=== PATIENT | male | born 1975 ===

== ENCOUNTER 2017-07-09 16:05 | Inpatient (IN) | payer OTHER ==
--- NOTE | 2017-07-09 17:18 | C.PDOC ---
History Of Present Illness 42 yr old male with PMHx of psoriasis, presents to the ER with complaints of palpitations and SOB intermittent for the past 3 days. Patient states the palpitations last about 1 minute and than resolves. Patient denies caffeine or drug use, no risk factors for DVT, fever, chest pain, nausea, vomiting, weakness or numbness. Time Seen by Provider: 07/09/17 16:51 Chief Complaint (Nursing): Palpitations History Per: Patient History/Exam Limitations: no limitations Onset/Duration Of Symptoms: Days (3), Intermittent Episodes Past Medical History Reviewed: Historical Data, Nursing Documentation, Vital Signs Vital Signs: Last Vital Signs Temp 98.1 F 07/10/17 15:15 Pulse 79 07/10/17 15:15 Resp 20 07/10/17 15:15 BP 102/66 07/10/17 15:15 Pulse Ox 100 07/10/17 15:15 Family History: States: No Known Family Hx - Social History Hx Alcohol Use: Yes Hx Substance Use: No - Immunization History Hx Tetanus Toxoid Vaccination: No Hx Influenza Vaccination: No Hx Pneumococcal Vaccination: No Review Of Systems Except As Marked, All Systems Reviewed And Found Negative. Constitutional: Negative for: Fever Cardiovascular: Positive for: Palpitations. Negative for: Chest Pain Respiratory: Positive for: Shortness of Breath Gastrointestinal: Negative for: Nausea, Vomiting Neurological: Negative for: Weakness, Numbness Physical Exam - Physical Exam Appears: Non-toxic, No Acute Distress Skin: Warm, Dry, Rash (rash preent to the arms and chest consistent with psoriasis) Eye(s): bilateral: Conjunctiva Pale Oral Mucosa: Moist Neck: Normal, Normal ROM, Supple Cardiovascular: Rhythm Regular, No Murmur Respiratory: Normal Breath Sounds, No Rales, No Rhonchi, No Stridor, No Wheezing Gastrointestinal/Abdominal: Normal Exam, Soft, No Tenderness, No Guarding, No Rebound Rectal: Rectal Tone (normal), Other (No stool in vault. Stool secretions area hemoccult positive.) Extremity: Normal ROM, No Swelling Neurological/Psych: Oriented x3, Normal Speech ED Course And Treatment - Laboratory Results Result Diagrams: 07/10/17 13:41 07/09/17 17:26 ECG: Interpreted By Me, Viewed By Me ECG Rhythm: Sinus Rhythm Interpretation Of ECG: Normal intervals. Normal axis. No ST/T wave changes. Rate From EC (BPM) O2 Sat by Pulse Oximetry: 100 (RA) Pulse Ox Interpretation: Normal Progress Note: Spoke to Dr. Urbina regarding patient. Patient to be admitted under telemetry for GI bleed and symptomatic anema. Dr. Feliciano for GI consult. Critical Care Time - Critical Care Note Total Time (in mins): 45 Documented critical care: time excludes all time spent performing seperately billable procedures. Medical Decision Making Medical Decision Making: PLAN: * CXR * EKG * Labs Disposition Discussed With Dr.: Thania London Counseled Patient/Family Regarding: Studies Performed, Diagnosis - Disposition Disposition: HOSPITALIZED Disposition Time: 18:16 Condition: FAIR - Clinical Impression Clinical Impression: GI bleed - Scribe Statement The provider has reviewed the documentation as recorded by the Jeffibe Susanna Villeda Provider Attestation: All medical record entries made by the Jeffibadela were at my direction and personally dictated by me. I have reviewed the chart and agree that the record accurately reflects my personal performance of the history, physical exam, medical decision making, and the department course for this patient. I have also personally directed, reviewed, and agree with the discharge instructions and disposition.
[2017-07-09 17:29] LABS: BASO # 0.1 K/uL (0.0-0.2); EOS # 0.2 K/uL (0.0-0.7); LYMPH # 1.5 K/uL (1.0-4.3); MEAN CORPUSCULAR HGB CONC 30.4 g/dL (33.0-37.0); NEUT # 3.6 K/uL (1.8-7.0)
[2017-07-09 17:32] LABS: BASO % 1.8 % (0.0-2.0); EOS % 3.3 % (0.0-4.0); LYMPH % 25.5 % (20.0-40.0); MEAN CELL VOLUME 65.7 fL (80.0-94.0); MEAN PLATELET VOLUME 6.6 fL (7.2-11.7); MONO # 0.4 K/uL (0.0-0.8); MONO % 7.2 % (0.0-10.0); NEUT % 62.2 % (50.0-75.0); NRBC % 0.8 % (0.0-2.0); RBC 1.96 Mil/uL (4.40-5.90); RED CELL DISTRIBUTION WIDTH 19.6 % (11.5-14.5); WHITE BLOOD COUNT 5.7 K/uL (4.8-10.8)
[2017-07-09 17:34] LABS: HEMOGLOBIN 3.9 g/dL (12.0-18.0)
[2017-07-09 17:41] LABS: ALB/GLOB RATIO 0.9 (1.0-2.1); ALBUMIN 3.3 g/dL (3.5-5.0); ALT/SGPT 23 U/L (21-72); AST/SGOT 22 U/L (17-59); BLOOD UREA NITROGEN 17 mg/dL (9-20); CALCIUM 8.3 mg/dl (8.6-10.4); GFR AFRICAN-AMERICAN > 60; GFR NON-AFRICAN AMERICAN > 60; MAGNESIUM 2.1 mg/dL (1.6-2.3)
[2017-07-09 17:53] LABS: B-TYPE NATRIURETIC PEPTIDE 311 pg/mL (0-450)
--- NOTE | 2017-07-09 18:12 | RAD ---
HISTORY: chest pain COMPARISON: None available. TECHNIQUE: Chest PA and lateral FINDINGS: LUNGS: Mild biapical pleural thickening. No focal consolidation. Scattered probable calcified granulomas. Please note that chest x-ray has limited sensitivity for the detection of pulmonary masses. PLEURA: No significant pleural effusion identified. No definite pneumothorax . CARDIOVASCULAR: Heart size appears within normal limits. OSSEOUS STRUCTURES: No acute osseous abnormality identified. VISUALIZED UPPER ABDOMEN: Unremarkable. OTHER FINDINGS: None. IMPRESSION: No focal consolidation identified.
[2017-07-09] MEDS ORDERED: Lactated Ringer's 1,000 ML IV SCH (19:30)
[2017-07-09 19:31] LABS: PROTHROMBIN TIME 12.3 SECONDS (9.7-12.2)
[2017-07-09 19:32] LABS: INR 1.1
[2017-07-09 19:39] LABS: IRON 21 ug/dL (49-181)
[2017-07-09 19:48] LABS: % IRON SATURATION 6 (20-55); TOTAL IRON BINDING CAPACITY 378 ug/dL (250-450)
[2017-07-09] MEDS: Pantoprazole 80 MG in Sodium Chloride 0.9% 100 ML IVP SCH (19:55)
[2017-07-09 19:59] LABS: HEPATITIS B SURFACE AG Negative (NEGATIVE)
[2017-07-09 20:05] LABS: HEPATITIS A IGM NEGATIVE (NEGATIVE); HEPATITIS B CORE AB NEGATIVE (NEGATIVE)
[2017-07-09 20:16] LABS: HEPATITIS C ANTIBODY NEGATIVE (NEGATIVE)
--- NOTE | 2017-07-09 20:29 | CP.PCM.HP ---
<Winston Marie E - Last Filed: 07/09/17 20:47> History of Present Illness - History of Present Illness History of Present Illness: CC: Shortness of breath and Dizziness HPI: Patient is a 42 year old with past medical history of psoriasis who presents to the ed with complaints of dizziness, shortness of breath, palpitation that has been worsening for the past three weeks. Patient reports that he has noted intermittent dark stool for the past two weeks but denies bright red blood in his bowel movement. Patient admits to 6-7lbs weight lose within 5-6 monthsm shortness of breath, palpitations, dizziness, lightheadedness. 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 Admits to 1 cigarettes every night for the past 8 years, social ETOH and denies illicit drug use Present on Admission - Present on Admission Any Indicators Present on Admission: No Review of Systems - Constitutional Constitutional: Fatigue, Weakness. absent: Chills, Fever - EENT Eyes: absent: Blurred Vision, Change in Vision Ears: Dizziness Nose/Mouth/Throat: absent: Epistaxis - Cardiovascular Cardiovascular: Dyspnea, Lightheadedness, Palpitations. absent: Chest Pain, Edema, Leg Edema, Rapid Heart Rate, Syncope - Respiratory Respiratory: Dyspnea, Dyspnea on Exertion. absent: Cough, Hemoptysis, Wheezing , Snoring, Pain on Inspiration, Chest Congestion, Pain with Coughing - Gastrointestinal Gastrointestinal: absent: Abdominal Pain, Diarrhea, Hematemesis, Hematochezia, Nausea, Vomiting - Psychiatric Psychiatric: absent: Anxiety, Change in Appetite - Endocrine Endocrine: Fatigue, Palpitations - Hematologic/Lymphatic Hematologic: absent: Easy Bleeding, Easy Bruising Past Patient History - Infectious Disease Hx of Infectious Diseases: None - Past Social History Smoking Status: Current Some Days Smoker - INTEGUMENTARY Hx Psoriasis: Yes - PSYCHIATRIC Hx Substance Use: No - SURGICAL HISTORY Hx Surgeries: No - ANESTHESIA Hx Anesthesia: No Meds Allergies/Adverse Reactions: Allergies Allergy/AdvReac Type Severity Reaction Status Date / Time No Known Allergies Allergy Verified 07/09/17 16:30 Physical Exam - Constitutional Appears: No Acute Distress - Head Exam Head Exam: ATRAUMATIC, NORMAL INSPECTION - Eye Exam Eye Exam: EOMI, Normal appearance - ENT Exam ENT Exam: Mucous Membranes Moist - Respiratory Exam Respiratory Exam: Clear to Auscultation Bilateral, NORMAL BREATHING PATTERN. absent: Rhonchi, Wheezes, Respiratory Distress - Cardiovascular Exam Cardiovascular Exam: REGULAR RHYTHM, +S1, +S2. absent: Tachycardia - GI/Abdominal Exam GI & Abdominal Exam: Normal Bowel Sounds, Soft. absent: Distended, Firm, Guarding, Tenderness - Rectal Exam Additional comments: As per ER documentation: Rectal Tone (normal), Other (No stool in vault. Stool secretions area hemoccult positive.) - Extremities Exam Extremities exam: Positive for: normal inspection. Negative for: calf tenderness, pedal edema - Neurological Exam Neurological exam: Alert, CN II-XII Intact, Oriented x3 - Psychiatric Exam Psychiatric exam: Normal Affect - Skin Skin Exam: Pallor Additional comments: Dry healed rashes or scabies noted on bilateral arms possibly due to psoriasis Results - Vital Signs Recent Vital Signs: Last Vital Signs Temp 98.7 F 07/09/17 20:08 Pulse 88 07/09/17 20:08 Resp 14 07/09/17 20:08 BP 113/65 07/09/17 20:08 Pulse Ox 100 07/09/17 20:08 - Labs Result Diagrams: 07/09/17 17:26 07/09/17 17:26 Labs: Laboratory Results - last 24 hr 07/09/17 07/09/17 07/09/17 17:26 17:26 17:26 WBC 5.7 RBC 1.96 L Hgb 3.9 L* Hct 12.9 L MCV 65.7 L MCH 20.0 L MCHC 30.4 L RDW 19.6 H Plt Count 473 H MPV 6.6 L Neut % (Auto) 62.2 Lymph % (Auto) 25.5 Barren % (Auto) 7.2 Eos % (Auto) 3.3 Baso % (Auto) 1.8 Neut # (Auto) 3.6 Lymph # (Auto) 1.5 Barren # (Auto) 0.4 Eos # (Auto) 0.2 Baso # (Auto) 0.1 Retic Count PT INR D-Dimer, Quantitative 219 Sodium 135 Potassium 4.4 Chloride 99 Carbon Dioxide 28 Anion Gap 12 BUN 17 Creatinine 0.9 Est GFR ( Amer) > 60 Est GFR (Non-Af Amer) > 60 Random Glucose 99 Calcium 8.3 L Magnesium 2.1 Iron TIBC % Saturation Total Bilirubin 0.3 AST 22 ALT 23 Alkaline Phosphatase 68 Troponin I < 0.0120 C-React Prot High Sens NT-Pro-B Natriuret Pep 311 Total Protein 6.9 Albumin 3.3 L Globulin 3.5 Albumin/Globulin Ratio 0.9 L Hepatitis A IgM Ab Hep Bs Antigen Hep B Core IgM Ab Hepatitis C Antibody HIV 1&2 Antibody Screen Anti-Staphylolysin O Blood Type Antibody Screen 07/09/17 07/09/17 07/09/17 19:05 19:05 19:05 WBC RBC Hgb Hct MCV MCH MCHC RDW Plt Count MPV Neut % (Auto) Lymph % (Auto) Barren % (Auto) Eos % (Auto) Baso % (Auto) Neut # (Auto) Lymph # (Auto) Barren # (Auto) Eos # (Auto) Baso # (Auto) Retic Count PT INR D-Dimer, Quantitative Sodium Potassium Chloride Carbon Dioxide Anion Gap BUN Creatinine Est GFR ( Amer) Est GFR (Non-Af Amer) Random Glucose Calcium Magnesium Iron TIBC % Saturation Total Bilirubin AST ALT Alkaline Phosphatase Troponin I C-React Prot High Sens 10.01 H NT-Pro-B Natriuret Pep Total Protein Albumin Globulin Albumin/Globulin Ratio Hepatitis A IgM Ab Negative Hep Bs Antigen Negative Hep B Core IgM Ab Negative Hepatitis C Antibody Negative HIV 1&2 Antibody Screen Anti-Staphylolysin O Negative Blood Type Antibody Screen 07/09/17 07/09/17 07/09/17 19:05 19:06 19:06 WBC RBC Hgb Hct MCV MCH MCHC RDW Plt Count MPV Neut % (Auto) Lymph % (Auto) Barren % (Auto) Eos % (Auto) Baso % (Auto) Neut # (Auto) Lymph # (Auto) Barren # (Auto) Eos # (Auto) Baso # (Auto) Retic Count PT INR D-Dimer, Quantitative Sodium Potassium Chloride Carbon Dioxide Anion Gap BUN Creatinine Est GFR ( Amer) Est GFR (Non-Af Amer) Random Glucose Calcium Magnesium Iron 21 L TIBC 378 % Saturation 6 L Total Bilirubin AST ALT Alkaline Phosphatase Troponin I C-React Prot High Sens NT-Pro-B Natriuret Pep Total Protein Albumin Globulin Albumin/Globulin Ratio Hepatitis A IgM Ab Hep Bs Antigen Hep B Core IgM Ab Hepatitis C Antibody HIV 1&2 Antibody Screen Negative Anti-Staphylolysin O Blood Type O POSITIVE Antibody Screen Negative 07/09/17 07/09/17 19:27 19:31 WBC RBC Hgb Hct MCV MCH MCHC RDW Plt Count MPV Neut % (Auto) Lymph % (Auto) Barren % (Auto) Eos % (Auto) Baso % (Auto) Neut # (Auto) Lymph # (Auto) Barren # (Auto) Eos # (Auto) Baso # (Auto) Retic Count 4.1 H PT 12.3 H INR 1.1 D-Dimer, Quantitative Sodium Potassium Chloride Carbon Dioxide Anion Gap BUN Creatinine Est GFR ( Amer) Est GFR (Non-Af Amer) Random Glucose Calcium Magnesium Iron TIBC % Saturation Total Bilirubin AST ALT Alkaline Phosphatase Troponin I C-React Prot High Sens NT-Pro-B Natriuret Pep Total Protein Albumin Globulin Albumin/Globulin Ratio Hepatitis A IgM Ab Hep Bs Antigen Hep B Core IgM Ab Hepatitis C Antibody HIV 1&2 Antibody Screen Anti-Staphylolysin O Blood Type Antibody Screen Assessment & Plan (1) Anemia Assessment and Plan: On admission: H/H: 3.9/12.9 GI consults, Dr. Feliciano---> Help appreciated Hematology/Oncology, Dr. Cardozo----> Help appreciated Transfuse 3 units PRBC Recheck CBC Labs/imaging: Iron: 21, TIBC: 378, % Saturation:6, F/u ferritin, reticulocyte, haptoglobin F/u gastric and occult stool F/u abdomen complete (US) HIV, hepatitis panel and ASO: Negative Status: Acute (2) History of psoriasis Status: Acute (3) Prophylactic measure Assessment and Plan: GI: Protonix drip DVT: SCDs. no anticoagualtion due to unstable H/H NPO Fall protocol All plans and management discussed with Dr. Serrano Status: Acute <Daniel Serrano - Last Filed: 07/10/17 17:41> Results - Vital Signs Recent Vital Signs: Last Vital Signs Temp 98.1 F 07/10/17 15:15 Pulse 79 07/10/17 15:15 Resp 20 07/10/17 15:15 BP 102/66 07/10/17 15:15 Pulse Ox 100 07/10/17 15:15 - Labs Result Diagrams: 07/10/17 13:41 07/09/17 17:26 Labs: Laboratory Results - last 24 hr 07/09/17 07/09/17 07/09/17 17:26 17:26 17:26 WBC RBC Hgb Hct MCV MCH MCHC RDW Plt Count MPV Neut % (Auto) Lymph % (Auto) Barren % (Auto) Eos % (Auto) Baso % (Auto) Neut # (Auto) Lymph # (Auto) Barren # (Auto) Eos # (Auto) Baso # (Auto) Smear Path Review ESR Retic Count PT INR D-Dimer, Quantitative 219 Sodium 135 Potassium 4.4 Chloride 99 Carbon Dioxide 28 Anion Gap 12 BUN 17 Creatinine 0.9 Est GFR ( Amer) > 60 Est GFR (Non-Af Amer) > 60 Random Glucose 99 Calcium 8.3 L Magnesium 2.1 Iron TIBC % Saturation Total Bilirubin 0.3 AST 22 ALT 23 Alkaline Phosphatase 68 Troponin I < 0.0120 C-React Prot High Sens NT-Pro-B Natriuret Pep 311 Total Protein 6.9 Albumin 3.3 L Globulin 3.5 Albumin/Globulin Ratio 0.9 L Vitamin B12 Folate Hepatitis A IgM Ab Hep Bs Antigen Hep B Core IgM Ab Hepatitis C Antibody HIV 1&2 Antibody Screen Anti-Staphylolysin O Blood Type Antibody Screen 07/09/17 07/09/17 07/09/17 19:05 19:05 19:05 WBC RBC Hgb Hct MCV MCH MCHC RDW Plt Count MPV Neut % (Auto) Lymph % (Auto) Barren % (Auto) Eos % (Auto) Baso % (Auto) Neut # (Auto) Lymph # (Auto) Barren # (Auto) Eos # (Auto) Baso # (Auto) Smear Path Review ESR 60 H Retic Count PT INR D-Dimer, Quantitative Sodium Potassium Chloride Carbon Dioxide Anion Gap BUN Creatinine Est GFR ( Amer) Est GFR (Non-Af Amer) Random Glucose Calcium Magnesium Iron TIBC % Saturation Total Bilirubin AST ALT Alkaline Phosphatase Troponin I C-React Prot High Sens 10.01 H NT-Pro-B Natriuret Pep Total Protein Albumin Globulin Albumin/Globulin Ratio Vitamin B12 Folate Hepatitis A IgM Ab Hep Bs Antigen Hep B Core IgM Ab Hepatitis C Antibody HIV 1&2 Antibody Screen Anti-Staphylolysin O Negative Blood Type Antibody Screen 07/09/17 07/09/17 07/09/17 19:05 19:05 19:06 WBC RBC Hgb Hct MCV MCH MCHC RDW Plt Count MPV Neut % (Auto) Lymph % (Auto) Barren % (Auto) Eos % (Auto) Baso % (Auto) Neut # (Auto) Lymph # (Auto) Barren # (Auto) Eos # (Auto) Baso # (Auto) Smear Path Review ESR Retic Count PT INR D-Dimer, Quantitative Sodium Potassium Chloride Carbon Dioxide Anion Gap BUN Creatinine Est GFR ( Amer) Est GFR (Non-Af Amer) Random Glucose Calcium Magnesium Iron TIBC % Saturation Total Bilirubin AST ALT Alkaline Phosphatase Troponin I C-React Prot High Sens NT-Pro-B Natriuret Pep Total Protein Albumin Globulin Albumin/Globulin Ratio Vitamin B12 Folate Hepatitis A IgM Ab Negative Hep Bs Antigen Negative Hep B Core IgM Ab Negative Hepatitis C Antibody Negative HIV 1&2 Antibody Screen Negative Anti-Staphylolysin O Blood Type O POSITIVE Antibody Screen Negative 07/09/17 07/09/17 07/09/17 19:06 19:06 19:27 WBC RBC Hgb Hct MCV MCH MCHC RDW Plt Count MPV Neut % (Auto) Lymph % (Auto) Barren % (Auto) Eos % (Auto) Baso % (Auto) Neut # (Auto) Lymph # (Auto) Barren # (Auto) Eos # (Auto) Baso # (Auto) Smear Path Review ESR Retic Count 4.1 H PT INR D-Dimer, Quantitative Sodium Potassium Chloride Carbon Dioxide Anion Gap BUN Creatinine Est GFR ( Amer) Est GFR (Non-Af Amer) Random Glucose Calcium Magnesium Iron 21 L TIBC 378 % Saturation 6 L Total Bilirubin AST ALT Alkaline Phosphatase Troponin I C-React Prot High Sens NT-Pro-B Natriuret Pep Total Protein Albumin Globulin Albumin/Globulin Ratio Vitamin B12 534 Folate 16.3 Hepatitis A IgM Ab Hep Bs Antigen Hep B Core IgM Ab Hepatitis C Antibody HIV 1&2 Antibody Screen Anti-Staphylolysin O Blood Type Antibody Screen 07/09/17 07/10/17 19:31 13:41 WBC 6.5 RBC 3.38 L Hgb 8.3 L D Hct 25.8 L MCV 76.2 L D MCH 24.6 L MCHC 32.3 L RDW 23.5 H Plt Count 430 H MPV 7.2 Neut % (Auto) 67.0 Lymph % (Auto) 20.6 Barren % (Auto) 8.1 Eos % (Auto) 2.8 Baso % (Auto) 1.5 Neut # (Auto) 4.4 Lymph # (Auto) 1.3 Barren # (Auto) 0.5 Eos # (Auto) 0.2 Baso # (Auto) 0.1 Smear Path Review ESR Retic Count PT 12.3 H INR 1.1 D-Dimer, Quantitative Sodium Potassium Chloride Carbon Dioxide Anion Gap BUN Creatinine Est GFR ( Amer) Est GFR (Non-Af Amer) Random Glucose Calcium Magnesium Iron TIBC % Saturation Total Bilirubin AST ALT Alkaline Phosphatase Troponin I C-React Prot High Sens NT-Pro-B Natriuret Pep Total Protein Albumin Globulin Albumin/Globulin Ratio Vitamin B12 Folate Hepatitis A IgM Ab Hep Bs Antigen Hep B Core IgM Ab Hepatitis C Antibody HIV 1&2 Antibody Screen Anti-Staphylolysin O Blood Type Antibody Screen Attending/Attestation - Attestation I have personally seen and examined this patient.: Yes I have fully participated in the care of the patient.: Yes I have reviewed all pertinent clinical information: Yes Notes (Text): Patient was seen and examined. Assessment and the plan discussed with the resident. spoke to GI fellow I agree with the resident's documentation of the assessment and the plan 07/10/17 17:40
[2017-07-09 20:36] LABS: FOLATE 16.3 ng/mL
--- NOTE | 2017-07-09 23:14 | US ---
EXAM: US Abdomen Complete CLINICAL HISTORY: 42 years old, male; Signs and symptoms; Other: Anemia; Additional info: Severe anemia TECHNIQUE: Real-time ultrasound of the abdomen (complete) with image documentation. COMPARISON: No relevant prior studies available. FINDINGS: Liver: Probable mild fatty infiltration. No mass. No intrahepatic ductal dilatation. Gallbladder: No gallstones. No wall thickening. No pericholecystic fluid. No sonographic Meehan's sign. Common bile duct: No dilatation. No stones. Pancreas: Unremarkable as visualized. Kidneys: Normal echogenicity. No hydronephrosis. Spleen: No splenomegaly. Splenule. Aorta: Unremarkable. No aneurysm. Inferior vena cava: Unremarkable. Free fluid: No significant free fluid. IMPRESSION: 1.No acute findings. 2.Non-acute findings are described above.
[2017-07-10] MEDS: Pantoprazole 80 MG in Sodium Chloride 0.9% 100 ML IVP SCH ×2 (07:05)
--- NOTE | 2017-07-10 07:41 | CP.PCM.CON ---
<Cornell Martin - Last Filed: 07/10/17 07:55> History of Present Illness - History of Present Illness History of Present Illness: PGY5 GI Fellow Consult Note Patient is a 42yo male with PMHx significant for rheumatoid arthritis and psoriasis who presented to the ED with shortness of breath and palpitations for 3 days. States that for the past two weeks he has noticed progressively worsening shortness of breath and suddenly developed palpitations 3-4 days prior to arrival. In this same time frame, he admits to dark black stool. He has never had symptoms like this before and has not been evaluated recently for his ongoing complaints. On arrival in the ED, routine blood work revealed a hemoglobin of 3.5 with no prior for comparison. The patient is currently on his third blood transfusion and already has noted improvement in symptoms. Denies any hematochezia, fever, chills, nausea, vomiting, weight loss, NSAID use. Only medication patient was utilizing was osteo bi-flex OTC (glucosamine) for joint pain. PMHx: See HPI PSHx: Discussed with patient and denies prior surgery FHx: Discussed with patient and he denies pertinent family history Social: 1 cigarette/day, occasional EtOH use, denies illicit drug use Endo: No prior endoscopic evaluations 12 system ROS performed and negative except where stated. Past Patient History - Infectious Disease Hx of Infectious Diseases: None - Past Medical History & Family History Past Medical History?: Yes - Past Social History Smoking Status: Current Some Days Smoker - CARDIAC Hx Cardiac Disorders: No - PULMONARY Hx Respiratory Disorders: No - NEUROLOGICAL Hx Neurological Disorder: No - HEENT Hx HEENT Problems: No - RENAL Hx Chronic Kidney Disease: No - ENDOCRINE/METABOLIC Hx Endocrine Disorders: No - HEMATOLOGICAL/ONCOLOGICAL Hx Blood Disorders: No - INTEGUMENTARY Hx Psoriasis: Yes - MUSCULOSKELETAL/RHEUMATOLOGICAL Hx Musculoskeletal Disorders: No Hx Falls: No - GASTROINTESTINAL Hx Gastrointestinal Disorders: No - GENITOURINARY/GYNECOLOGICAL Hx Genitourinary Disorders: No - PSYCHIATRIC Hx Substance Use: No - SURGICAL HISTORY Hx Surgeries: No - ANESTHESIA Hx Anesthesia: No Meds Allergies/Adverse Reactions: Allergies Allergy/AdvReac Type Severity Reaction Status Date / Time No Known Allergies Allergy Verified 07/09/17 16:30 - Medications Medications: Current Medications Pantoprazole Sodium 80 mg/ (Sodium Chloride) 100 mls @ 10 mls/hr IVP .Q10H JIE PRN Reason: 8 MG/HR Last Admin: 07/10/17 07:05 Dose: 10 mls/hr Lactated Ringer's (Lactated Ringer's) 1,000 mls @ 80 mls/hr IV .[id number] COUNT INCLUDES THE [facility] Physical Exam - Constitutional Appears: Non-toxic, No Acute Distress - Eye Exam Eye Exam: EOMI, PERRL Additional comments: scleral pallor - ENT Exam ENT Exam: Mucous Membranes Dry - Respiratory Exam Respiratory Exam: Clear to Auscultation Bilateral. absent: Rales, Rhonchi, Wheezes - Cardiovascular Exam Cardiovascular Exam: RRR, +S1, +S2 - GI/Abdominal Exam GI & Abdominal Exam: Normal Bowel Sounds, Soft. absent: Distended, Firm, Guarding, Organomegaly, Rigid, Tenderness - Extremities Exam Extremities exam: Positive for: normal inspection. Negative for: pedal edema Additional comments: significant B/L changes c/w rheumatoid arthritis in hands/feet; hands with ulnar deviation, multiple deformities - Neurological Exam Neurological exam: Alert, Oriented x3 - Psychiatric Exam Psychiatric exam: Normal Affect, Normal Mood - Skin Skin Exam: Dry, Pallor, Warm Results - Vital Signs Recent Vital Signs: Last Vital Signs Temp 97.5 F L 07/10/17 07:20 Pulse 72 07/10/17 07:20 Resp 20 07/10/17 07:20 BP 105/62 07/10/17 07:20 Pulse Ox 100 07/09/17 23:30 - Labs Result Diagrams: 07/09/17 17:26 07/09/17 17:26 Labs: Laboratory Results - last 24 hr 07/09/17 07/09/17 07/09/17 17:26 17:26 17:26 WBC 5.7 RBC 1.96 L Hgb 3.9 L* Hct 12.9 L MCV 65.7 L MCH 20.0 L MCHC 30.4 L RDW 19.6 H Plt Count 473 H MPV 6.6 L Neut % (Auto) 62.2 Lymph % (Auto) 25.5 [place] % (Auto) 7.2 Eos % (Auto) 3.3 Baso % (Auto) 1.8 Neut # (Auto) 3.6 Lymph # (Auto) 1.5 [place] # (Auto) 0.4 Eos # (Auto) 0.2 Baso # (Auto) 0.1 ESR Retic Count PT INR D-Dimer, Quantitative 219 Sodium 135 Potassium 4.4 Chloride 99 Carbon Dioxide 28 Anion Gap 12 BUN 17 Creatinine 0.9 Est GFR ( Amer) > 60 Est GFR (Non-Af Amer) > 60 Random Glucose 99 Calcium 8.3 L Magnesium 2.1 Iron TIBC % Saturation Total Bilirubin 0.3 AST 22 ALT 23 Alkaline Phosphatase 68 Troponin I < 0.0120 C-React Prot High Sens NT-Pro-B Natriuret Pep 311 Total Protein 6.9 Albumin 3.3 L Globulin 3.5 Albumin/Globulin Ratio 0.9 L Vitamin B12 Folate Hepatitis A IgM Ab Hep Bs Antigen Hep B Core IgM Ab Hepatitis C Antibody HIV 1&2 Antibody Screen Anti-Staphylolysin O Blood Type Antibody Screen 07/09/17 07/09/17 07/09/17 19:05 19:05 19:05 WBC RBC Hgb Hct MCV MCH MCHC RDW Plt Count MPV Neut % (Auto) Lymph % (Auto) [place] % (Auto) Eos % (Auto) Baso % (Auto) Neut # (Auto) Lymph # (Auto) [place] # (Auto) Eos # (Auto) Baso # (Auto) ESR 60 H Retic Count PT INR D-Dimer, Quantitative Sodium Potassium Chloride Carbon Dioxide Anion Gap BUN Creatinine Est GFR ( Amer) Est GFR (Non-Af Amer) Random Glucose Calcium Magnesium Iron TIBC % Saturation Total Bilirubin AST ALT Alkaline Phosphatase Troponin I C-React Prot High Sens 10.01 H NT-Pro-B Natriuret Pep Total Protein Albumin Globulin Albumin/Globulin Ratio Vitamin B12 Folate Hepatitis A IgM Ab Hep Bs Antigen Hep B Core IgM Ab Hepatitis C Antibody HIV 1&2 Antibody Screen Anti-Staphylolysin O Negative Blood Type Antibody Screen 07/09/17 07/09/17 07/09/17 19:05 19:05 19:06 WBC RBC Hgb Hct MCV MCH MCHC RDW Plt Count MPV Neut % (Auto) Lymph % (Auto) [place] % (Auto) Eos % (Auto) Baso % (Auto) Neut # (Auto) Lymph # (Auto) [place] # (Auto) Eos # (Auto) Baso # (Auto) ESR Retic Count PT INR D-Dimer, Quantitative Sodium Potassium Chloride Carbon Dioxide Anion Gap BUN Creatinine Est GFR ( Amer) Est GFR (Non-Af Amer) Random Glucose Calcium Magnesium Iron TIBC % Saturation Total Bilirubin AST ALT Alkaline Phosphatase Troponin I C-React Prot High Sens NT-Pro-B Natriuret Pep Total Protein Albumin Globulin Albumin/Globulin Ratio Vitamin B12 Folate Hepatitis A IgM Ab Negative Hep Bs Antigen Negative Hep B Core IgM Ab Negative Hepatitis C Antibody Negative HIV 1&2 Antibody Screen Negative Anti-Staphylolysin O Blood Type O POSITIVE Antibody Screen Negative 07/09/17 07/09/17 07/09/17 19:06 19:06 19:27 WBC RBC Hgb Hct MCV MCH MCHC RDW Plt Count MPV Neut % (Auto) Lymph % (Auto) [place] % (Auto) Eos % (Auto) Baso % (Auto) Neut # (Auto) Lymph # (Auto) [place] # (Auto) Eos # (Auto) Baso # (Auto) ESR Retic Count 4.1 H PT INR D-Dimer, Quantitative Sodium Potassium Chloride Carbon Dioxide Anion Gap BUN Creatinine Est GFR ( Amer) Est GFR (Non-Af Amer) Random Glucose Calcium Magnesium Iron 21 L TIBC 378 % Saturation 6 L Total Bilirubin AST ALT Alkaline Phosphatase Troponin I C-React Prot High Sens NT-Pro-B Natriuret Pep Total Protein Albumin Globulin Albumin/Globulin Ratio Vitamin B12 534 Folate 16.3 Hepatitis A IgM Ab Hep Bs Antigen Hep B Core IgM Ab Hepatitis C Antibody HIV 1&2 Antibody Screen Anti-Staphylolysin O Blood Type Antibody Screen 07/09/17 19:31 WBC RBC Hgb Hct MCV MCH MCHC RDW Plt Count MPV Neut % (Auto) Lymph % (Auto) [place] % (Auto) Eos % (Auto) Baso % (Auto) Neut # (Auto) Lymph # (Auto) [place] # (Auto) Eos # (Auto) Baso # (Auto) ESR Retic Count PT 12.3 H INR 1.1 D-Dimer, Quantitative Sodium Potassium Chloride Carbon Dioxide Anion Gap BUN Creatinine Est GFR ( Amer) Est GFR (Non-Af Amer) Random Glucose Calcium Magnesium Iron TIBC % Saturation Total Bilirubin AST ALT Alkaline Phosphatase Troponin I C-React Prot High Sens NT-Pro-B Natriuret Pep Total Protein Albumin Globulin Albumin/Globulin Ratio Vitamin B12 Folate Hepatitis A IgM Ab Hep Bs Antigen Hep B Core IgM Ab Hepatitis C Antibody HIV 1&2 Antibody Screen Anti-Staphylolysin O Blood Type Antibody Screen Assessment & Plan - Assessment and Plan (Free Text) Assessment: Patient is a 42yo male with PMHx significant for rheumatoid arthritis and psoriasis who presented to the ED with shortness of breath and palpitations for 3 days. Patient admits to melena. -Severe microcytic anemia - suspect component of acute blood loss anemia, but with HGB 3.5 this likely represents chronic blood loss -Rheumatoid arthritis -Psoriasis Plan: -Continue ongoing resuscitation with blood transfusions and IVF -Patient will benefit from urgent endoscopy given subjective melena and HGB 3.5 -Protonix gtt as ordered -NPO -Plan per findings -Even if there are significant findings on EGD, patient may eventually benefit from colonoscopy given his autoimmune disease profile which would put him at risk for IBD - Date & Time Date: 07/10/17 Time: 07:00 <Mal Mackey - Last Filed: 07/10/17 12:16> Meds - Medications Medications: Current Medications Pantoprazole Sodium 80 mg/ (Sodium Chloride) 100 mls @ 10 mls/hr IVP .Q10H JIE PRN Reason: 8 MG/HR Last Admin: 07/10/17 07:05 Dose: 10 mls/hr Lactated Ringer's (Lactated Ringer's) 1,000 mls @ 80 mls/hr IV .[id number] JIE Results - Vital Signs Recent Vital Signs: Last Vital Signs Temp 97.4 F L 07/10/17 10:08 Pulse 76 07/10/17 10:08 Resp 20 07/10/17 10:08 BP 106/63 07/10/17 10:08 Pulse Ox 99 07/10/17 07:00 - Labs Result Diagrams: 07/09/17 17:26 07/09/17 17:26 Labs: Laboratory Results - last 24 hr 07/09/17 07/09/17 07/09/17 17:26 17:26 17:26 WBC 5.7 RBC 1.96 L Hgb 3.9 L* Hct 12.9 L MCV 65.7 L MCH 20.0 L MCHC 30.4 L RDW 19.6 H Plt Count 473 H MPV 6.6 L Neut % (Auto) 62.2 Lymph % (Auto) 25.5 [place] % (Auto) 7.2 Eos % (Auto) 3.3 Baso % (Auto) 1.8 Neut # (Auto) 3.6 Lymph # (Auto) 1.5 [place] # (Auto) 0.4 Eos # (Auto) 0.2 Baso # (Auto) 0.1 Smear Path Review ESR Retic Count PT INR D-Dimer, Quantitative 219 Sodium 135 Potassium 4.4 Chloride 99 Carbon Dioxide 28 Anion Gap 12 BUN 17 Creatinine 0.9 Est GFR ( Amer) > 60 Est GFR (Non-Af Amer) > 60 Random Glucose 99 Calcium 8.3 L Magnesium 2.1 Iron TIBC % Saturation Total Bilirubin 0.3 AST 22 ALT 23 Alkaline Phosphatase 68 Troponin I < 0.0120 C-React Prot High Sens NT-Pro-B Natriuret Pep 311 Total Protein 6.9 Albumin 3.3 L Globulin 3.5 Albumin/Globulin Ratio 0.9 L Vitamin B12 Folate Hepatitis A IgM Ab Hep Bs Antigen Hep B Core IgM Ab Hepatitis C Antibody HIV 1&2 Antibody Screen Anti-Staphylolysin O Blood Type Antibody Screen 07/09/17 07/09/17 07/09/17 19:05 19:05 19:05 WBC RBC Hgb Hct MCV MCH MCHC RDW Plt Count MPV Neut % (Auto) Lymph % (Auto) [place] % (Auto) Eos % (Auto) Baso % (Auto) Neut # (Auto) Lymph # (Auto) [place] # (Auto) Eos # (Auto) Baso # (Auto) Smear Path Review ESR 60 H Retic Count PT INR D-Dimer, Quantitative Sodium Potassium Chloride Carbon Dioxide Anion Gap BUN Creatinine Est GFR ( Amer) Est GFR (Non-Af Amer) Random Glucose Calcium Magnesium Iron TIBC % Saturation Total Bilirubin AST ALT Alkaline Phosphatase Troponin I C-React Prot High Sens 10.01 H NT-Pro-B Natriuret Pep Total Protein Albumin Globulin Albumin/Globulin Ratio Vitamin B12 Folate Hepatitis A IgM Ab Hep Bs Antigen Hep B Core IgM Ab Hepatitis C Antibody HIV 1&2 Antibody Screen Anti-Staphylolysin O Negative Blood Type Antibody Screen 07/09/17 07/09/17 07/09/17 19:05 19:05 19:06 WBC RBC Hgb Hct MCV MCH MCHC RDW Plt Count MPV Neut % (Auto) Lymph % (Auto) [place] % (Auto) Eos % (Auto) Baso % (Auto) Neut # (Auto) Lymph # (Auto) [place] # (Auto) Eos # (Auto) Baso # (Auto) Smear Path Review ESR Retic Count PT INR D-Dimer, Quantitative Sodium Potassium Chloride Carbon Dioxide Anion Gap BUN Creatinine Est GFR ( Amer) Est GFR (Non-Af Amer) Random Glucose Calcium Magnesium Iron TIBC % Saturation Total Bilirubin AST ALT Alkaline Phosphatase Troponin I C-React Prot High Sens NT-Pro-B Natriuret Pep Total Protein Albumin Globulin Albumin/Globulin Ratio Vitamin B12 Folate Hepatitis A IgM Ab Negative Hep Bs Antigen Negative Hep B Core IgM Ab Negative Hepatitis C Antibody Negative HIV 1&2 Antibody Screen Negative Anti-Staphylolysin O Blood Type O POSITIVE Antibody Screen Negative 07/09/17 07/09/17 07/09/17 19:06 19:06 19:27 WBC RBC Hgb Hct MCV MCH MCHC RDW Plt Count MPV Neut % (Auto) Lymph % (Auto) [place] % (Auto) Eos % (Auto) Baso % (Auto) Neut # (Auto) Lymph # (Auto) [place] # (Auto) Eos # (Auto) Baso # (Auto) Smear Path Review ESR Retic Count 4.1 H PT INR D-Dimer, Quantitative Sodium Potassium Chloride Carbon Dioxide Anion Gap BUN Creatinine Est GFR ( Amer) Est GFR (Non-Af Amer) Random Glucose Calcium Magnesium Iron 21 L TIBC 378 % Saturation 6 L Total Bilirubin AST ALT Alkaline Phosphatase Troponin I C-React Prot High Sens NT-Pro-B Natriuret Pep Total Protein Albumin Globulin Albumin/Globulin Ratio Vitamin B12 534 Folate 16.3 Hepatitis A IgM Ab Hep Bs Antigen Hep B Core IgM Ab Hepatitis C Antibody HIV 1&2 Antibody Screen Anti-Staphylolysin O Blood Type Antibody Screen 07/09/17 19:31 WBC RBC Hgb Hct MCV MCH MCHC RDW Plt Count MPV Neut % (Auto) Lymph % (Auto) [place] % (Auto) Eos % (Auto) Baso % (Auto) Neut # (Auto) Lymph # (Auto) [place] # (Auto) Eos # (Auto) Baso # (Auto) Smear Path Review ESR Retic Count PT 12.3 H INR 1.1 D-Dimer, Quantitative Sodium Potassium Chloride Carbon Dioxide Anion Gap BUN Creatinine Est GFR ( Amer) Est GFR (Non-Af Amer) Random Glucose Calcium Magnesium Iron TIBC % Saturation Total Bilirubin AST ALT Alkaline Phosphatase Troponin I C-React Prot High Sens NT-Pro-B Natriuret Pep Total Protein Albumin Globulin Albumin/Globulin Ratio Vitamin B12 Folate Hepatitis A IgM Ab Hep Bs Antigen Hep B Core IgM Ab Hepatitis C Antibody HIV 1&2 Antibody Screen Anti-Staphylolysin O Blood Type Antibody Screen Attending/Attestation - Attestation I have personally seen and examined this patient.: Yes I have fully participated in the care of the patient.: Yes I have reviewed all pertinent clinical information: Yes Notes (Text): 07/10/17 12:15 42 year old male with RA who presents with severe iron deficiency anemia, questionable history of melena, now s/p transfusion. Recommend EGD today to eval for UGIB. Recommend PPI. Further recs pending EGD. Recommend elective colonoscopy as well as outpatient.
[2017-07-10] MEDS ORDERED: Lactated Ringer's 1,000 ML IV ONE (12:15)
[2017-07-10] MEDS ORDERED: Midazolam 2 MG/2 ML VIAL ONE ×2 (12:16→12:59)
[2017-07-10] MEDS ORDERED: Etomidate 20 mg/10ml Inj IV ONE ×3 (12:17→12:21)
[2017-07-10] MEDS ORDERED: Propofol 10 mg/ml Inj (20 ML) ONE (12:18)
[2017-07-10 13:08] VITALS: O2SAT 100
[2017-07-10 13:53] LABS: BASO # 0.1 K/uL (0.0-0.2); BASO % 1.5 % (0.0-2.0); EOS # 0.2 K/uL (0.0-0.7); EOS % 2.8 % (0.0-4.0); LYMPH # 1.3 K/uL (1.0-4.3); LYMPH % 20.6 % (20.0-40.0); MEAN CORPUSCULAR HEMOGLOBIN 24.6 pg (27.0-31.0); MEAN CORPUSCULAR HGB CONC 32.3 g/dL (33.0-37.0); MEAN PLATELET VOLUME 7.2 fL (7.2-11.7); MONO # 0.5 K/uL (0.0-0.8); MONO % 8.1 % (0.0-10.0); NEUT # 4.4 K/uL (1.8-7.0); NRBC % 0.3 % (0.0-2.0); RBC 3.38 Mil/uL (4.40-5.90); RED CELL DISTRIBUTION WIDTH 23.5 % (11.5-14.5); WHITE BLOOD COUNT 6.5 K/uL (4.8-10.8)
[2017-07-10 13:54] LABS: HEMOGLOBIN 8.3 g/dL (12.0-18.0); MEAN CELL VOLUME 76.2 fL (80.0-94.0)
[2017-07-10 16:16] VITALS: BP 102/66; PULSE 79; RESP 20; TEMP 98.1
--- NOTE | 2017-07-10 16:16 | CP.PCM.PN ---
Subjective - Date & Time of Evaluation Date of Evaluation: 07/10/17 Time of Evaluation: 09:20 - Subjective Subjective: Medicine progress note ( Dr. Serrano's service) Patient was seen and examined at bedside while receiving his third unit of PRBC. Patient reports that he is doing well and feels much better. Patient denies chest pain, palpitations, SOB, dizziness, nausea, vomiting, fever and chills. Objective - Vital Signs/Intake and Output Vital Signs (last 24 hours): Temp Pulse Resp BP Pulse Ox 98.7 F 70 16 101/49 L 100 07/10/17 13:02 07/10/17 15:15 07/10/17 13:02 07/10/17 13:02 07/10/17 13:02 Intake and Output: 07/10/17 07/10/17 06:59 18:59 Intake Total 842 325 Balance 842 325 - Medications Medications: Current Medications Lactated Ringer's (Lactated Ringer's) 1,000 mls @ 80 mls/hr IV .[id number] JIE Pantoprazole Sodium (Protonix Ec Tab) 40 mg PO ACB JIE - Labs Labs: 07/10/17 13:41 07/09/17 17:26 PT 12.3 SECONDS (9.7-12.2) H 07/09/17 19:31 INR 1.1 07/09/17 19:31 - Constitutional Appears: Well, No Acute Distress - Head Exam Head Exam: ATRAUMATIC, NORMAL INSPECTION - Eye Exam Eye Exam: EOMI, Normal appearance - ENT Exam ENT Exam: Mucous Membranes Moist - Respiratory Exam Respiratory Exam: Clear to Ausculation Bilateral, NORMAL BREATHING PATTERN. absent: Rhonchi, Wheezes, Respiratory Distress - Cardiovascular Exam Cardiovascular Exam: REGULAR RHYTHM, +S1, +S2 - GI/Abdominal Exam GI & Abdominal Exam: Soft, Normal Bowel Sounds. absent: Guarding, Rigid, Tenderness - Extremities Exam Extremities Exam: Normal Inspection. absent: Calf Tenderness, Pedal Edema - Neurological Exam Neurological Exam: Alert, Awake, Oriented x3 - Psychiatric Exam Psychiatric exam: Normal Affect - Skin Skin Exam: Pallor (Improved pallor ) Assessment and Plan (1) Anemia Assessment & Plan: Microcytic anemia On admission: H/H: 3.9/12.9 * Tranfused 3 units of PRBC * Post transfusion H/H: 8.3/25.8 GI consults, Dr. Feliciano---> Help appreciated * Endoscopy (07/10/17): Normal esophagus, Gastirc ulcers with a clean ulcer base. Erosive gastritis biopsied; awaiting pathology * As per GI, patient can return regular diet and protonix 40mg PO daily. Patient will need repeat endoscopy in 2 months and a colonoscopy Hematology/Oncology, Dr. Cardozo----> Help appreciated * Awaiting recommendation Labs/imaging: Iron: 21, TIBC: 378, % Saturation:6, folate: 16.3, Vitamin B12: 534, reticulocyte:4.1, f/u ferritin and haptoglobin Awaiting gastric and occult stool Abdomen complete (US): No acute findings. Non-acute findings are described above. HIV, hepatitis panel and ASO: Negative Status: Acute (2) History of psoriasis Assessment & Plan: Stable Status: Acute (3) Prophylactic measure Assessment & Plan: GI: Protonix 40mg PO daily DVT: SCDs. no anticoagualtion due to unstable H/H NPO Fall protocol All plans and management discussed with Dr. Serrano Status: Acute
--- NOTE | 2017-07-10 17:37 | CP.PCM.DIS ---
<Winston Marie E - Last Filed: 07/10/17 17:28> Provider - Provider Date of Admission: 07/09/17 18:17 Attending physician: Daniel Serrano MD Time Spent in preparation of Discharge (in minutes): 45 Diagnosis - Discharge Diagnosis (1) Anemia Status: Acute (2) History of psoriasis Status: Acute (3) Prophylactic measure Status: Acute Hospital Course - Lab Results Lab Results: Most Recent Lab Values WBC 6.5 K/uL (4.8-10.8) 07/10/17 13:41 RBC 3.38 Mil/uL (4.40-5.90) L 07/10/17 13:41 Hgb 8.3 g/dL (12.0-18.0) L D 07/10/17 13:41 Hct 25.8 % (35.0-51.0) L 07/10/17 13:41 MCV 76.2 fL (80.0-94.0) L D 07/10/17 13:41 MCH 24.6 pg (27.0-31.0) L 07/10/17 13:41 MCHC 32.3 g/dL (33.0-37.0) L 07/10/17 13:41 RDW 23.5 % (11.5-14.5) H 07/10/17 13:41 Plt Count 430 K/uL (130-400) H 07/10/17 13:41 MPV 7.2 fL (7.2-11.7) 07/10/17 13:41 Neut % (Auto) 67.0 % (50.0-75.0) 07/10/17 13:41 Lymph % (Auto) 20.6 % (20.0-40.0) 07/10/17 13:41 [place] % (Auto) 8.1 % (0.0-10.0) 07/10/17 13:41 Eos % (Auto) 2.8 % (0.0-4.0) 07/10/17 13:41 Baso % (Auto) 1.5 % (0.0-2.0) 07/10/17 13:41 Neut # (Auto) 4.4 K/uL (1.8-7.0) 07/10/17 13:41 Lymph # (Auto) 1.3 K/uL (1.0-4.3) 07/10/17 13:41 [place] # (Auto) 0.5 K/uL (0.0-0.8) 07/10/17 13:41 Eos # (Auto) 0.2 K/uL (0.0-0.7) 07/10/17 13:41 Baso # (Auto) 0.1 K/uL (0.0-0.2) 07/10/17 13:41 Smear Path Review 07/09/17 17:26 ESR 60 mm/hr (0-15) H 07/09/17 19:05 Retic Count 4.1 % (0.5-1.5) H 07/09/17 19:27 PT 12.3 SECONDS (9.7-12.2) H 07/09/17 19:31 INR 1.1 07/09/17 19:31 D-Dimer, Quantitative 219 ng/mlDDU (0-243) 07/09/17 17:26 Sodium 135 mmol/L (132-148) 07/09/17 17:26 Potassium 4.4 mmol/L (3.6-5.2) 07/09/17 17:26 Chloride 99 mmol/L (98-107) 07/09/17 17:26 Carbon Dioxide 28 mmol/L (22-30) 07/09/17 17:26 Anion Gap 12 (10-20) 07/09/17 17:26 BUN 17 mg/dL (9-20) 07/09/17 17:26 Creatinine 0.9 mg/dL (0.8-1.5) 07/09/17 17:26 Est GFR ( Amer) > 60 07/09/17 17:26 Est GFR (Non-Af Amer) > 60 07/09/17 17:26 Random Glucose 99 mg/dL (75-110) 07/09/17 17:26 Calcium 8.3 mg/dl (8.6-10.4) L 07/09/17 17:26 Magnesium 2.1 mg/dL (1.6-2.3) 07/09/17 17:26 Iron 21 ug/dL (49-181) L 07/09/17 19:06 TIBC 378 ug/dL (250-450) 07/09/17 19:06 % Saturation 6 (20-55) L 07/09/17 19:06 Total Bilirubin 0.3 mg/dL (0.2-1.3) 07/09/17 17:26 AST 22 U/L (17-59) 07/09/17 17:26 ALT 23 U/L (21-72) 07/09/17 17:26 Alkaline Phosphatase 68 U/L (38-126) 07/09/17 17:26 Troponin I < 0.0120 ng/mL (0.00-0.120) 07/09/17 17:26 C-React Prot High Sens 10.01 mg/L (1.00-3.00) H 07/09/17 19:05 NT-Pro-B Natriuret Pep 311 pg/mL (0-450) 07/09/17 17:26 Total Protein 6.9 g/dL (6.3-8.3) 07/09/17 17:26 Albumin 3.3 g/dL (3.5-5.0) L 07/09/17 17:26 Globulin 3.5 gm/dL (2.2-3.9) 07/09/17 17:26 Albumin/Globulin Ratio 0.9 (1.0-2.1) L 07/09/17 17:26 Vitamin B12 534 pg/mL (239-931) 07/09/17 19:06 Folate 16.3 ng/mL 07/09/17 19:06 Hepatitis A IgM Ab Negative (NEGATIVE) 07/09/17 19:05 Hep Bs Antigen Negative (NEGATIVE) 07/09/17 19:05 Hep B Core IgM Ab Negative (NEGATIVE) 07/09/17 19:05 Hepatitis C Antibody Negative (NEGATIVE) 07/09/17 19:05 HIV 1&2 Antibody Screen Negative (NEGATIVE) 07/09/17 19:05 Anti-Staphylolysin O Negative (NEGATIVE) 07/09/17 19:05 Blood Type O POSITIVE 07/09/17 19:06 Antibody Screen Negative 07/09/17 19:06 - Hospital Course Hospital Course: HPI ( As per admission): Patient is a 42 year old with past medical history of psoriasis who presents to the ed with complaints of dizziness, shortness of breath, palpitation that has been worsening for the past three weeks. Patient reports that he has noted intermittent dark stool for the past two weeks but denies bright red blood in his bowel movement. Patient admits to 6-7lbs weight lose within 5-6 monthsm shortness of breath, palpitations, dizziness, lightheadedness. Hospital Course: Patient was admitted with the diagnosis of severe acute anemia and was subsequently transfused 3 units of PRBC and maintained on protonix IV drip. Patient symptoms started to improve post- transfusion and H/H was stable. GI consult was placed to Dr. Feliciano's GI group who recommended an EGD and for patient to start protonix 40mg PO daily. Patient had no acute over the course of admission. Patient remained stable and was discharge with appropriate instructions and medications. Pertinent imaging/Procedure/ labs: Endoscopy (07/10/17): Normal esophagus, Gastirc ulcers with a clean ulcer base. Erosive gastritis biopsied; awaiting pathology Iron: 21, TIBC: 378, % Saturation:6, folate: 16.3, Vitamin B12: 534, reticulocyte:4.1 Abdomen complete (US): No acute findings. Non-acute findings are described above. HIV, hepatitis panel and ASO: Negative This is a brief summary of event. For a complete course, please refer to the medical record Discharge Exam - Head Exam Head Exam: ATRAUMATIC, NORMAL INSPECTION - Eye Exam Eye Exam: EOMI, Normal appearance - ENT Exam ENT Exam: Mucous Membranes Moist - Respiratory Exam Respiratory Exam: Clear to PA & Lateral, NORMAL BREATHING PATTERN. absent: Wheezes, Respiratory Distress - Cardiovascular Exam Cardiovascular Exam: REGULAR RHYTHM, +S1, +S2 - GI/Abdominal Exam GI & Abdominal Exam: Normal Bowel Sounds, Soft. absent: Distended, Firm, Guarding, Tenderness - Extremities Exam Extremities exam: normal inspection - Neurological Exam Neurological exam: Alert, Oriented x3 - Psychiatric Exam Psychiatric exam: Normal Affect - Skin Skin Exam: Pallor (Very much improved pallor ) Discharge Plan - Discharge Medications Prescriptions: Ferrous Sulfate 325 mg PO BID 30 Days #60 tablet Pantoprazole [Protonix EC Tab] 40 mg PO DAILY 30 Days #30 ect - Follow Up Plan Condition: FAIR Disposition: HOME/ ROUTINE Additional Instructions: Please discharge patient home as per Dr. Serrano Please start the following medications: 1. Ferrous sulfate 325mg PO bid. Please take supplement with over the counter stool softener 2. Protonix 40mg PO daily As per GI recommendation, please avoid aspirin, Ibuprofen, naproxen or other non -steroidal anti-inflammatory drugs Please follow up at [facility] in order to establish care , Please follow up with Dr. Mackey, GI group at [facility] in order to establish care, and follow pathology result for biopsied erosive gastritis noted on your endoscopy. Patient will need repeat endoscopy in 2 months and a colonoscopy Please follow up with hematology and oncology outpatient, Dr. Yara Lawrence Please return if symptoms resumes Please take care <Daniel Serrano - Last Filed: 07/10/17 17:45> Provider - Provider Date of Admission: 07/09/17 18:17 Attending physician: Daniel Serrano MD Hospital Course - Lab Results Lab Results: Most Recent Lab Values WBC 6.5 K/uL (4.8-10.8) 07/10/17 13:41 RBC 3.38 Mil/uL (4.40-5.90) L 07/10/17 13:41 Hgb 8.3 g/dL (12.0-18.0) L D 07/10/17 13:41 Hct 25.8 % (35.0-51.0) L 07/10/17 13:41 MCV 76.2 fL (80.0-94.0) L D 07/10/17 13:41 MCH 24.6 pg (27.0-31.0) L 07/10/17 13:41 MCHC 32.3 g/dL (33.0-37.0) L 07/10/17 13:41 RDW 23.5 % (11.5-14.5) H 07/10/17 13:41 Plt Count 430 K/uL (130-400) H 07/10/17 13:41 MPV 7.2 fL (7.2-11.7) 07/10/17 13:41 Neut % (Auto) 67.0 % (50.0-75.0) 07/10/17 13:41 Lymph % (Auto) 20.6 % (20.0-40.0) 07/10/17 13:41 [place] % (Auto) 8.1 % (0.0-10.0) 07/10/17 13:41 Eos % (Auto) 2.8 % (0.0-4.0) 07/10/17 13:41 Baso % (Auto) 1.5 % (0.0-2.0) 07/10/17 13:41 Neut # (Auto) 4.4 K/uL (1.8-7.0) 07/10/17 13:41 Lymph # (Auto) 1.3 K/uL (1.0-4.3) 07/10/17 13:41 [place] # (Auto) 0.5 K/uL (0.0-0.8) 07/10/17 13:41 Eos # (Auto) 0.2 K/uL (0.0-0.7) 07/10/17 13:41 Baso # (Auto) 0.1 K/uL (0.0-0.2) 07/10/17 13:41 Smear Path Review 07/09/17 17:26 ESR 60 mm/hr (0-15) H 07/09/17 19:05 Retic Count 4.1 % (0.5-1.5) H 07/09/17 19:27 PT 12.3 SECONDS (9.7-12.2) H 07/09/17 19:31 INR 1.1 07/09/17 19:31 D-Dimer, Quantitative 219 ng/mlDDU (0-243) 07/09/17 17:26 Sodium 135 mmol/L (132-148) 07/09/17 17:26 Potassium 4.4 mmol/L (3.6-5.2) 07/09/17 17:26 Chloride 99 mmol/L (98-107) 07/09/17 17:26 Carbon Dioxide 28 mmol/L (22-30) 07/09/17 17:26 Anion Gap 12 (10-20) 07/09/17 17:26 BUN 17 mg/dL (9-20) 07/09/17 17:26 Creatinine 0.9 mg/dL (0.8-1.5) 07/09/17 17:26 Est GFR ( Amer) > 60 07/09/17 17:26 Est GFR (Non-Af Amer) > 60 07/09/17 17:26 Random Glucose 99 mg/dL (75-110) 07/09/17 17:26 Calcium 8.3 mg/dl (8.6-10.4) L 07/09/17 17:26 Magnesium 2.1 mg/dL (1.6-2.3) 07/09/17 17:26 Iron 21 ug/dL (49-181) L 07/09/17 19:06 TIBC 378 ug/dL (250-450) 07/09/17 19:06 % Saturation 6 (20-55) L 07/09/17 19:06 Total Bilirubin 0.3 mg/dL (0.2-1.3) 07/09/17 17:26 AST 22 U/L (17-59) 07/09/17 17:26 ALT 23 U/L (21-72) 07/09/17 17:26 Alkaline Phosphatase 68 U/L (38-126) 07/09/17 17:26 Troponin I < 0.0120 ng/mL (0.00-0.120) 07/09/17 17:26 C-React Prot High Sens 10.01 mg/L (1.00-3.00) H 07/09/17 19:05 NT-Pro-B Natriuret Pep 311 pg/mL (0-450) 07/09/17 17:26 Total Protein 6.9 g/dL (6.3-8.3) 07/09/17 17:26 Albumin 3.3 g/dL (3.5-5.0) L 07/09/17 17:26 Globulin 3.5 gm/dL (2.2-3.9) 07/09/17 17:26 Albumin/Globulin Ratio 0.9 (1.0-2.1) L 07/09/17 17:26 Vitamin B12 534 pg/mL (239-931) 07/09/17 19:06 Folate 16.3 ng/mL 07/09/17 19:06 Hepatitis A IgM Ab Negative (NEGATIVE) 07/09/17 19:05 Hep Bs Antigen Negative (NEGATIVE) 07/09/17 19:05 Hep B Core IgM Ab Negative (NEGATIVE) 07/09/17 19:05 Hepatitis C Antibody Negative (NEGATIVE) 07/09/17 19:05 HIV 1&2 Antibody Screen Negative (NEGATIVE) 07/09/17 19:05 Anti-Staphylolysin O Negative (NEGATIVE) 07/09/17 19:05 Blood Type O POSITIVE 07/09/17 19:06 Antibody Screen Negative 07/09/17 19:06 Attending/Attestation - Attestation I have personally seen and examined this patient.: Yes I have fully participated in the care of the patient.: Yes I have reviewed all pertinent clinical information, including history, physical exam and plan: Yes Notes (Text): Patient was seen and examined,Feels very good after transfusion,no palpitation, no sob,no complain GI finding ulcer and the follow up discussed. patient is applying for MEDICAID. He will follow our medical clinic downstairs and follow GI explained about medication,follow up biopsy and repeat EGD. He will be discharged home today. Asked to report to ER if he has gabi or became symptomatic again
[2017-07-11] MEDS ORDERED: Pantoprazole 40 mg EC Tab PO SCH (07:30)
--- NOTE | 2017-07-11 08:59 | CARD ---
APPROVED REPORT EKG Measurement Heart [id number] <Conclusion> Normal sinus rhythm Normal ECG
== END 2017-07-10 18:47 | disposition home or self-care (01) | DRG 178 ==
LOC: C.ER 16:05 → C.9E 18:17 → C.6T 21:50
PROVIDERS: ADMIT Internal Medicine; ATTEND Internal Medicine
PROC: 0DB68ZX Excision of Stomach, Via Natural or Artificial Opening Endoscopic, Diagnostic (ICD-10-PCS; principal; 2017-07-10 12:22)
DX: K25.9 Gastric ulcer, unspecified as acute or chronic, without hemorrhage or perforation (principal); B96.81 Helicobacter pylori [H. pylori] as the cause of diseases classified elsewhere; D50.9 Iron deficiency anemia, unspecified; F17.210 Nicotine dependence, cigarettes, uncomplicated; L40.9 Psoriasis, unspecified